=== PATIENT | male | born 1965 | race Asian ===

== ENCOUNTER 2021-01-14 13:53 | Emergency (ER) | payer OTHER ==
[~2021-01-14] VITALS: Ht 175.3 cm; Wt 79.4 kg
[2021-01-14 14:04] VITALS: BP_SYST 134
[2021-01-14] MEDS ORDERED: CYCL10TA9 PO (15:12)
[2021-01-14 15:19] VITALS: BP_SYST 134
== END 2021-01-14 15:19 | disposition home or self-care (01) ==
LOC: SED 13:53
DX: S43.401A Unspecified sprain of right shoulder joint, initial encounter (principal); V49.49XA Driver injured in collision with other motor vehicles in traffic accident, initial encounter; Y93.89 Activity, other specified; Y92.89 Other specified places as the place of occurrence of the external cause; Y99.8 Other external cause status
CPT/HCPCS: 73030; 99283